=== PATIENT | female | born 1995 | race Caucasian/White ===

== ENCOUNTER → 2019-02-18 | Outpatient (CLI) | payer OTHER ==
[2016-07-05 23:17] VITALS: BP 115/63
[~2019-02-18] MED LIST: BIRTH CONTROL PO; CLOTRIMAZOLE VA45 GM TP; GOOD NEIGHBOR500 M2 PO
[2019-02-18 17:18] LABS: EOS # 0.1 (0.04-0.40); EOS % 0.8 % (1.0-5.0); HEMOGLOBIN 12.4 g/dL (12.5-16.0); MEAN CELL VOLUME 76 fl (78-100); MEAN CORPUSCULAR HGB CONC 32 g/dL (33-37); MEAN PLATELET VOLUME 9.7 fl (7.4-10.4); MONO # 0.9 (0.20-0.80); NEU # 5.8 (1.40-6.50); PLATELET COUNT 391 K/mm3 (130-400); RED BLOOD COUNT 5.13 M/mm3 (4.10-5.30); RED CELL DISTRIBUTION WIDTH 14.5 % (11.5-14.5); WHITE BLOOD COUNT 9.8 K/mm3 (4.8-10.8)
[2019-02-18 17:19] LABS: ALBUMIN 4.2 g/dL (3.5-5.0); POTASSIUM 3.5 mmol/L (3.5-5.1)
[2019-02-18 17:21] LABS: CALCIUM 9.5 mg/dL (8.3-10.5)
[2019-02-18 17:22] LABS: MEAN CORPUSCULAR HEMOGLOBIN 24 pg (27-31); TOTAL PROTEIN 7.7 g/dL (6.4-8.3)
[2019-02-18 17:24] LABS: TOTAL BILIRUBIN 0.3 mg/dL (0.2-1.2)
== END ==
LOC: LAB 16:47
PROVIDERS: Physician Assistant
DX: R10.31 Right lower quadrant pain (principal); R11.0 Nausea

== ENCOUNTER → 2019-02-23 | Outpatient (CLI) | payer OTHER ==
[2016-07-05 23:17] VITALS: BP 115/63
== END ==
LOC: RAD 07:00
DX: R10.31 Right lower quadrant pain (principal); R11.0 Nausea

== ENCOUNTER → 2019-02-27 | Outpatient (CLI) | payer OTHER ==
[2016-07-05 23:17] VITALS: BP 115/63
[2019-02-27 17:21] LABS: BASO # 0.1 (0.02-0.10); EOS # 0.3 (0.04-0.40); EOS % 3.1 % (1.0-5.0); HEMATOCRIT 39.5 % (37.0-47.0); HEMOGLOBIN 12.6 g/dL (12.5-16.0); LYMPH# 2.5 (1.50-4.00); MEAN CELL VOLUME 76 fl (78-100); MEAN CORPUSCULAR HGB CONC 32 g/dL (33-37); MEAN PLATELET VOLUME 9.4 fl (7.4-10.4); MONO # 1.2 (0.20-0.80); PLATELET COUNT 371 K/mm3 (130-400); RED BLOOD COUNT 5.17 M/mm3 (4.10-5.30); RED CELL DISTRIBUTION WIDTH 14.7 % (11.5-14.5)
[2019-02-27 17:29] LABS: MEAN CORPUSCULAR HEMOGLOBIN 24 pg (27-31)
== END ==
LOC: LAB 17:07
PROVIDERS: Physician Assistant
DX: D64.9 Anemia, unspecified (principal); Z83.2 Family history of diseases of the blood and blood-forming organs and certain disorders involving the immune mechanism

== ENCOUNTER → 2020-02-29 | Outpatient (CLI) | payer OTHER ==
[2016-07-05 23:17] VITALS: BP 115/63
== END ==
LOC: LAB 12:13
DX: R31.9 Hematuria, unspecified (principal)